=== PATIENT | female | born 1995 | race Hispanic/Latino ===

== ENCOUNTER 2021-07-22 08:31 | Day surgery (SDC) | payer BC ==
[2021-07-20 13:37] LABS: Absolute Lymphocytes (CBC) 2.4 K/uL (0.7-4.9); Basophils % 0.5 % (0-1.3); Hematocrit 37.7 % (36.0-45.0); Lymphocytes % 29.5 % (15.3-44.8); MPV 8.1 fL (7.6-11.3); RBC Red Blood Cell Count 4.39 M/uL (3.86-4.86)
[2021-07-20 13:40] LABS: Protime INR 1.06
--- NOTE | 2021-07-20 13:41 | RAD REPORT ---
EXAM DESCRIPTION: RAD - Chest Pa And Lat (2 Views) - 07/20/2021 1:16 pm CLINICAL HISTORY: Pre Op pending ORIF right arm, fracture of the right olecranon COMPARISON: None TECHNIQUE: Frontal and lateral views of the chest were obtained. FINDINGS: The lungs are clear. Heart size is normal and central vasculature is within normal limit s. No pleural effusion or pneumothorax seen. No acute bony finding noted. No aortic abnormality. IMPRESSION: No acute cardiopulmonary process.
[2021-07-20 13:46] LABS: BUN Blood Urea Nitrogen 13 mg/dL (7-18); Bicarbonate 29 mmol/L (21-32); Glucose Level 93 mg/dL (74-106); Potassium 4.1 mmol/L (3.5-5.1); Sodium Level 143 mmol/L (136-145)
[2021-07-22] MEDS ORDERED: dexAMETHasone 10 MG/ML VIAL ONE ×2 (08:39→08:40)
[2021-07-22] MEDS ORDERED: NS 0.9% VIAL 10 ML ONE (08:39)
[2021-07-22] MEDS ORDERED: LIDOCAINE 1% MPF 5 ML VIAL ONE (08:39)
[2021-07-22] MEDS ORDERED: ROPLVACAINE HCL 40 ML ONE (08:39)
[2021-07-22] MEDS ORDERED: propofoL 200 MG/20 ML VIAL IV ONE (08:40)
[2021-07-22] MEDS ORDERED: KETOROLAC 30 MG/ML INJ ONE (08:40)
[2021-07-22] MEDS ORDERED: ROCURONIUM 50 MG/5 ML VIAL IV ONE (08:40)
[2021-07-22] MEDS ORDERED: LIDOCAINE 2% MPF 5 ML VIAL ONE (08:40)
[2021-07-22] MEDS ORDERED: ONDANSETRON 4 MG/2 ML VIAL ONE (08:41)
[2021-07-22] MEDS ORDERED: Ringers Lactate 1,000 ML IV ONE (08:47)
[2021-07-22] MEDS ORDERED: CEFAZOLIN/NS 1gm 1 GM/50 ML BAG ONE (08:47)
[2021-07-22] MEDS ORDERED: MIDAZOLAM HCL 2 MG/2 ML INJ ONE ×2 (09:26→09:50)
[2021-07-22] MEDS ORDERED: FENTANYL CITR 100 MCG/2 ML ONE (09:26)
[2021-07-22] MEDS: BUPIVACAINE 0.25% PF 30 ML VIAL ONE ×2 (11:15→12:10)
[2021-07-22] MEDS ORDERED: GLYCOPYRROLATE 0.2 MG/ML SYR ONE (12:18)
[2021-07-22] MEDS ORDERED: NEOSTIGMINE 1 MG/ML -5 ML ONE (12:31)
--- NOTE | 2021-07-22 12:37 | P.BOP ---
Preoperative diagnosis: right olecranon fracture Postoperative diagnosis: same Primary procedure: ORIF right olecranon fracture Quality Systems Specialist: NONE,NONE Estimated blood loss: 5 cc Specimen: none Findings: see dictation Anesthesia: General Complications: None Implants: 3 hole Acumed olecranon locking plate Fluids & blood products: per anesthesia record; TT: 61 mins @ 250 mmHg Transferred to: Recovery Room Condition: Good
[2021-07-22 12:49] VITALS: O2SAT 100
[2021-07-22 13:43] VITALS: BP 108/71; TEMP 98
--- NOTE | 2021-07-22 14:16 | RAD REPORT ---
EXAM DESCRIPTION: RAD - Elbow Right 2 View - 07/22/2021 2:08 pm CLINICAL HISTORY: Ulna fracture FINDINGS: Plate and screws affix an ulna fracture in good alignment
--- NOTE | 2021-07-22 14:52 | RAD REPORT ---
EXAM DESCRIPTION: RAD - Elbow Right 2 View - 07/22/2021 1:16 pm CLINICAL HISTORY: Ulna fracture FINDINGS: Twenty intraoperative fluoroscopic spot images obtained. Fluoroscopy time 0.1 minute Plate and screws affix an ulnar fracture in good alignment. Surgery performed by Dr. Mcneal
--- NOTE | 2021-07-23 03:46 | OP ---
Date of Procedure: 07/22/2021 Surgeon: Bryant Mcneal MD Preoperative Diagnosis: Right olecranon fracture. Postoperative Diagnosis: Right olecranon fracture. Procedure Performed: Open reduction and internal fixation, right olecranon fracture. Anesthesia: General endotracheal. Fluids: Per Anesthesia record. Estimated Blood Loss: 5 cc. Complications: None. Implants: Acumed 3-hole olecranon locking plate. Tourniquet Time: 61 minutes at 250 mmHg. Indication For Procedure: Norma is a 25-year-old female, who presented to my clinic after sustaini ng an injury to her right elbow after falling. X-rays and CT scan demonstrated a comminuted right di splaced olecranon fracture. I discussed with the patient at length risks and benefits associated wit h operative and nonoperative treatment. Given her displaced intra-articular fracture pattern, I have recommended operative treatment. Description Of Procedure: After informed consent was obtained, the patient was identified in the pre operative holding area. The right upper extremity was marked. The patient was brought back to the P ACU, where she underwent an interscalene block performed by Anesthesia. She was then taken back to t operating room, transferred to the operating table in a supine fashion, placed under general endot aleksandr anesthesia. She was placed in the left lateral decubitus position with an axillary roll plac ed and her extremities well padded. The right upper extremity was then prepped and draped in usual s terile fashion. A time-out was initiated. The correct patient and procedure were confirmed and iden tified. The patient did receive a preoperative prophylactic antibiotics. Esmarch was then used to e xsanguinate the right upper extremity and tourniquet was inflated to 250 mmHg. Proximally, a 10 cm l ongitudinal incision was made, centered over the olecranon. Dissection was then taken down to the ol ecranon and proximal ulna fracture was identified. It was then irrigated with normal saline and then , pointed reduction clamp was then used to reduce the fracture. Fluoroscopy was used to ensure prope r reduction and 3-hole olecranon locking plate was then placed. It was temporarily affixed using a K -wire in the proximal segment as well as a K-wire in the distal segment. Fluoroscopy was then used t o confirm reduction and overall good alignment and placement of the plate. A single unicortical scre w was placed in the proximal segment to reduce the fracture to the plate and followed by 3 unicortica l screws. Fluoroscopy was then used to ensure that the screws were not within the joint and there wa s full range of motion of the olecranon without any crepitus noted. Next, a single bicortical screw was placed distally for compression at the fracture site, which was noted. Two remaining screws were then placed distally in bicortical fashion for further fixation of the plate. A single home-run scr ew was then placed and there was good overall fixation and reduction of the fracture noted on fluoros copy. The final x-rays were then taken. Then, fluoroscopy was then used to confirm reduction and pl acement as well as ensuring that no screws were intra-articular. The elbow had full range of motion without any crepitus or mechanical symptoms noted. Wounds were then irrigated thoroughly with normal saline. Deep tissues approximated using a 0 Vicryl. Subcutaneous tissue was approximated using a 2 -0 Vicryl. Skin was approximated using a nylon. Sterile dressings were applied. The patient was pl aced in a posterior splint. Tourniquet was let down and the patient was awakened and sent to PACU in stable condition. Postoperative Plan: The patient will follow up in 2 weeks for wound check and suture removal. She w ill be nonweightbearing in right upper extremity. We will begin gentle range of motion exercises at times. NAMRATA/KRISTINA Voice ID: [id number] Report ID: [id number]
== END 2021-07-22 14:15 | disposition home or self-care (01) ==
LOC: OR 08:31
PROVIDERS: ATTEND Orthopaedic Surgery Sports Medicine
PROC: 0PSK04Z Reposition Right Ulna with Internal Fixation Device, Open Approach (ICD-10-PCS; principal; 2021-07-22 10:00)
DX: S52.021A Displaced fracture of olecranon process without intraarticular extension of right ulna, initial encounter for closed fracture (principal); M25.521 Pain in right elbow; Z20.822 Contact with and (suspected) exposure to COVID-19
CPT/HCPCS: 93005; 85025; 80048; 36415; 81025; 85610; 85730; 71046; 73070 ×2; 24685; U0003; J2704; J2250 ×2; J3010; J1100 ×2; J2795; J2710; J0690; J7120; J2405